=== PATIENT | female | born 1995 | race Caucasian/White ===

== ENCOUNTER 2020-02-29 09:20 | Inpatient (IN) | payer BC, OTHER ==
[~2020-02-29] VITALS: Ht 160 cm; Wt 68.2 kg
[~2020-02-29 09:20] MED LIST: IBUP-1222 PO; OXYC1TAB7 PO
[2020-02-29] MEDS ORDERED: PREN-3 PO (09:52)
[2020-02-29] MEDS ORDERED: OXYTOCIN 30U/ 0.9% NaCL 500ML 500 ML IV PRN (10:14)
[2020-02-29] MEDS ORDERED: OXYTOCIN 30U/ 0.9% NaCL 500ML 500 ML IV ONE (10:14)
[2020-02-29] MEDS: LACTATED RINGERS 1,000 ML IV SCH ×2 (10:15→13:38)
[2020-02-29] MEDS ORDERED: TERBUTALINE 1 MG/ML, 1ML SQ PRN (10:30)
[2020-02-29] MEDS ORDERED: FENTANYL PF 100 MCG/2ML IV PRN (10:30)
[2020-02-29] MEDS ORDERED: TERBUTALINE 1 MG/ML, 1ML IVPush PRN (10:30)
[2020-02-29] MEDS ORDERED: FENTANYL PF 100 MCG/2ML IVPush PRN (10:30)
[2020-02-29 10:45] LABS: BASOPHILS # (AUTO) 0.04 x10^3/uL (0-0.1); BASOPHILS % (AUTO) 0 % (0-1); EOSINOPHILS # (AUTO) 0.14 x10^3/uL (0-0.4); EOSINOPHILS % (AUTO) 1 % (1-7); LYMPHOCYTES # (AUTO) 2.48 x10^3/uL (1-3.4); LYMPHOCYTES % (AUTO) 16 % (22-44); MD NO; MEAN CORPUSCULAR HEMOGLOBIN 28.5 pg (27.0-34.8); MEAN CORPUSCULAR HGB CONC 33.2 g/dL (32.4-35.8); MEAN CORPUSCULAR VOLUME 85.6 fL (80-100); MEAN PLATELET VOLUME 11.2 fL (7.4-10.4); MONOCYTES # (AUTO) 0.77 x10^3/uL (0.2-0.8); MONOCYTES % (AUTO) 5 % (2-9); NEUTROPHILS # (AUTO) 12.39 x10^3/uL (1.8-6.8); NEUTROPHILS % (AUTO) 78 % (42-75); PLATELET COUNT 192 x10^3/uL (130-400); RED BLOOD COUNT 3.61 x10^6/uL (3.82-5.3); RED CELL DISTRIBUTION WIDTH 14.4 % (9.6-15.2)
[2020-02-29] MEDS ORDERED: LIDOCAINE 1%, 20ML ONE (12:00)
[2020-02-29] MEDS ORDERED: MISOPROSTOL 200 MCG TABLET ONE (12:00)
[2020-02-29] MEDS ORDERED: OXYTOCIN 30U/ 0.9% NaCL 500ML 500 ML ONE ×2 (12:00→22:52)
[2020-02-29] MEDS ORDERED: NEWBORN KIT ONE (12:00)
[2020-02-29] MEDS ORDERED: ONDANSETRON 2MG/ML, 2ML IVPush PRN ×2 (12:30→15:30)
[2020-02-29] MEDS: D5%-LACTATED RINGERS 1,000 ML IV SCH ×2 (12:30→20:30)
[2020-02-29] MEDS ORDERED: CALCIUM CARBONATE 500 MG TAB.CHEW PO PRN (12:30)
[2020-02-29] MEDS ORDERED: FENTANYL PF 100 MCG/2ML ONE ×2 (14:18→14:23)
[2020-02-29] MEDS ORDERED: FENTANYL/BUPIV./NS/PF 250 ML EPIDCONT ONE ×2 (14:19→14:23)
[2020-02-29] MEDS ORDERED: BUPIVACAINE 0.25% ONE ×2 (14:19→14:23)
[2020-02-29] MEDS ORDERED: LIDOCAINE/PF 1.5%-EPI 1:200K, 30ML ONE (14:23)
[2020-02-29] MEDS ORDERED: LACTATED RINGERS 1,000 ML IV SCH (15:01)
[2020-02-29] MEDS ORDERED: FENTANYL/BUPIV./NS/PF 250 ML EPIDCONT SCH (15:01)
[2020-02-29] MEDS ORDERED: LACTATED RINGERS 1,000 ML IVBOLUS PRN (15:30)
[2020-02-29] MEDS ORDERED: EPHEDRINE 50 MG/ML, 1ML IVPush PRN (15:30)
[2020-02-29] MEDS ORDERED: IBUPROFEN 600 MG TABLET ONE (22:51)
[2020-02-29] MEDS ORDERED: OXYcodone/APAP 5/325MG TABLET ONE (22:52)
[2020-02-29] MEDS ORDERED: SIMETHICONE 80 MG CHEW TAB PO PRN (23:00)
[2020-02-29] MEDS ORDERED: ACETAMINOPHEN 325 MG TABLET PO PRN (23:00)
[2020-02-29] MEDS ORDERED: ONDANSETRON 2MG/ML, 2ML IV PRN (23:00)
[2020-02-29] MEDS ORDERED: MISOPROSTOL 200 MCG TABLET PR PRN (23:00)
[2020-02-29] MEDS ORDERED: OXYcodone IR 5MG TABLET PO PRN (23:00)
[2020-02-29] MEDS: IBUPROFEN 600 MG TABLET PO PRN (23:08)
[2020-02-29] MEDS: OXYcodone/APAP 5/325MG TABLET PO PRN (23:09)
[2020-02-29] MEDS: OXYTOCIN 30U/ 0.9% NaCL 500ML 500 ML IV SCH (23:10)
[2020-03-01 01:10] VITALS: BP 110/69
[2020-03-01] MEDS: LACTATED RINGERS 1,000 ML IV SCH ×2 (04:12→12:12)
[2020-03-01 04:30] VITALS: BP 119/70
[2020-03-01] MEDS: D5%-LACTATED RINGERS 1,000 ML IV SCH ×2 (04:30→12:30)
[2020-03-01] MEDS ORDERED: IBUPROFEN 200 MG TABLET ONE (06:23)
[2020-03-01] MEDS: OXYcodone/APAP 5/325MG TABLET PO PRN ×4 (06:26→22:51)
[2020-03-01] MEDS: IBUPROFEN 600 MG TABLET PO PRN ×3 (06:26→18:42)
[2020-03-01 07:05] LABS: MEAN CORPUSCULAR HEMOGLOBIN 28.6 pg (27.0-34.8); MEAN CORPUSCULAR HGB CONC 33.5 g/dL (32.4-35.8); MEAN CORPUSCULAR VOLUME 85.3 fL (80-100); MEAN PLATELET VOLUME 10.9 fL (7.4-10.4); PLATELET COUNT 183 x10^3/uL (130-400); RED BLOOD COUNT 3.32 x10^6/uL (3.82-5.3); RED CELL DISTRIBUTION WIDTH 14.4 % (9.6-15.2)
[2020-03-01 07:28] LABS: MD YES
[2020-03-01 07:30] VITALS: BP 109/66
[2020-03-01 07:32] LABS: <PLATELET ESTIMATE> ADEQUATE; BAND#(MANUAL) 0.24 x10^3/uL; BANDS%(MANUAL) 1 % (0-7); LYMPH#(MANUAL) 1.21 x10^3/uL (1-3.4); LYMPHS% (MANUAL) 5 % (22-44); MONOS#(MANUAL) 0.97 x10^3/uL (0.3-2.7); MONOS% (MANUAL) 4 % (2-9); POLYCHROMASIA 1+; SEG#(MANUAL) 21.78 x10^3/uL (1.8-6.8); SEGS% (MANUAL) 90 % (42-75)
[2020-03-01 07:33] LABS: LARGE PLATELETS 1+
[2020-03-01] MEDS: PRENATAL VIT/IRON/FA 1 EACH TABLET PO SCH (08:47)
[2020-03-01] MEDS: DOCUSATE 100 MG CAPSULE PO PRN ×2 (08:47→22:50)
[2020-03-01] MEDS: OXYTOCIN 30U/ 0.9% NaCL 500ML 500 ML IV SCH (08:51)
[2020-03-01 12:30] VITALS: BP 112/73
[2020-03-01 16:00] VITALS: BP 101/63
[2020-03-01 20:45] VITALS: BP 112/70
[2020-03-02] MEDS: IBUPROFEN 600 MG TABLET PO PRN (02:46)
[2020-03-02] MEDS: OXYcodone/APAP 5/325MG TABLET PO PRN ×2 (02:47→07:42)
[2020-03-02] MEDS: PRENATAL VIT/IRON/FA 1 EACH TABLET PO SCH (07:41)
[2020-03-02] MEDS: DOCUSATE 100 MG CAPSULE PO PRN (07:42)
[2020-03-02 08:06] VITALS: BP 96/61
[2020-03-02] MEDS ORDERED: OXYC-302 PO (10:54)
[2020-03-02] MEDS ORDERED: FERR325T23 PO (10:54)
== END 2020-03-02 11:55 | disposition home or self-care (01) | DRG 806 ==
LOC: LDOP 09:20 → LDIP 10:38 → 2NW 03-01 00:49
PROVIDERS: ADMIT Obstetrics & Gynecology; ATTEND Obstetrics & Gynecology
PROC: 10E0XZZ Delivery of Products of Conception, External Approach (ICD-10-PCS; principal; 2020-02-29)
PROC: 0KQM0ZZ Repair Perineum Muscle, Open Approach (ICD-10-PCS; 2020-02-29)
PROC: 0W8NXZZ Division of Female Perineum, External Approach (ICD-10-PCS; 2020-02-29)
PROC: 3E0R3BZ Introduction of Anesthetic Agent into Spinal Canal, Percutaneous Approach (ICD-10-PCS; 2020-02-29)
PROC: 00HU33Z Insertion of Infusion Device into Spinal Canal, Percutaneous Approach (ICD-10-PCS; 2020-02-29)
DX: O70.1 Second degree perineal laceration during delivery (principal); D62 Acute posthemorrhagic anemia; Z37.0 Single live birth; O99.02 Anemia complicating childbirth; Z3A.38 38 weeks gestation of pregnancy
CPT/HCPCS: 36415; J3490; 85025; 86592; 86850; 86900; G0378; J3010; J2590; J7120